=== PATIENT | male | born 1930 | race Hispanic/Latino ===

== ENCOUNTER 2016-12-14 19:30 | Outpatient (CLI) | payer MEDICARE, OTHER | END 2016-12-14 19:31 | disposition home or self-care (01) | LOC: SLEEPLAB 19:30 | PROVIDERS: ATTEND Internal Medicine | DX: G47.33 Obstructive sleep apnea (adult) (pediatric) (principal); I25.10 Atherosclerotic heart disease of native coronary artery without angina pectoris; I10 Essential (primary) hypertension; E66.9 Obesity, unspecified | CPT/HCPCS: 95811 ==

== ENCOUNTER 2017-07-30 14:05 | Outpatient (CLI) | payer MEDICARE, OTHER | END 2017-07-30 14:06 | disposition home or self-care (01) | LOC: CP 14:05 | PROVIDERS: ATTEND Internal Medicine Critical Care Medicine | DX: R06.09 Other forms of dyspnea (principal); G47.33 Obstructive sleep apnea (adult) (pediatric) ==

== ENCOUNTER 2017-08-04 12:18 | Observation (INO) | payer MEDICARE, OTHER ==
[2017-08-04 13:17] LABS: #Eosinphils 0.2 thou/uL (0.0-0.7); #Lymphocytes 1.6 thou/uL (1.20-3.40); #Monocytes 0.4 thou/uL (0.11-0.59); #Neutrophils 4.2 thou/uL (1.40-6.50); %Basophils 0.3 % (0.0-1.0); %Eosinophils 2.7 % (0.0-10.0); %Lymphocytes 24.5 % (21.0-51.0); %Monocytes 6.3 % (0.0-10.0); %Neutrophils 66.2 % (42.0-75.0); Hemoglobin 15.1 g/dL (14.0-18.0); Mean Corpuscular HGB CONC 33.6 g/dL (32.0-36.0); Mean Corpuscular Hemoglobin 32.9 pg (27.0-31.0); Mean Platelet Volume 6.7 fL (7.4-10.4); Platelet Count 230 thou/uL (130-400); RBC Distribution Width 13.3 % (11.5-14.5); Red Blood Cell (RBC) Count 4.58 mill/uL (4.70-6.10); White Blood Cell (WBC) Count 6.4 thou/uL (4.8-10.8)
[2017-08-04 13:37] LABS: ALT (SGPT) 21 U/L (8-55); AST (SGOT) 22 U/L (5-34); Albumin 4.1 g/dL (3.4-4.8); Alkaline Phosphatase 79 U/L (40-150); Anion Gap 11 mmol/L (10-20); BUN (Urea Nitrogen) 18 mg/dL (8.4-25.7); Bilirubin, Total 0.5 mg/dL (0.2-1.2); CK (CPK) 100 U/L (30-200); Calc. Creatinine Clearance 0 mL/min (70-130); Calcium 8.8 mg/dL (7.8-10.44); Carbon Dioxide 24 mmol/L (23-31); Chloride 108 mmol/L (98-107); Estimated GFR-MDRD 65; Globulin 3.3 g/dL (2.4-3.5); Glucose 143 mg/dL (83-110); Potassium 3.7 mmol/L (3.5-5.1); Protein, Total 7.4 g/dL (5.8-8.1); Sodium 139 mmol/L (136-145)
[2017-08-04 13:42] LABS: CKMB 1.4 ng/mL (0-6.6); Troponin I Less than 0.010 ng/mL (< 0.028)
--- NOTE | 2017-08-04 14:42 | RAD ---
CHEST 2 VIEWS: HISTORY: Chest pain. COMPARISON: 08/13/15. FINDINGS: Cardiac silhouette and pulmonary vasculature are unremarkable. Mediastinum midline with aortic calci fication. Lungs are hyperinflated. No lobar consolidation, pneumothorax, or pleural fluid. Degener ative changes each shoulder. IMPRESSION: Chronic-type findings are stable. No active cardiopulmonary abnormalities are demonstrated. POS: [facility]
[2017-08-04 15:08] LABS: Bilirubin Negative (Negative); Blood, Urine Negative (Negative); Clarity CLEAR (Clear); Glucose, Urine (Dipstick) Negative (Negative); Leukocyte Small (Negative); Nitrite Negative (Negative); Protein, Urine (Dipstick) 300 mg/dL (Neg-Trace); pH, Urine 5.5 (5.0-9.0)
[2017-08-04 15:14] LABS: Bacteria/HPF None Seen HPF (None Seen); Hyaline Casts/LPF 0-3 HYALINE CAST LPF (0-3 Hyaline); Pathc Cast-AUWi Flag 0.29 (0-2.49); RBC/HPF 0-3 HPF (0-3); Squamous Epithelial 0-3 HPF (0-3); WBC/HPF 0-3 HPF (0-3)
--- NOTE | 2017-08-04 15:36 | CT ---
CT HEAD NONCONTRAST: Date: 08/04/17 COMPARISON: 08/13/15. INDICATION: Dizziness. FINDINGS: There is parenchymal volume loss, similar. No acute intracranial hemorrhage, mass effect, midline delicia ft, or ventriculomegaly. 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 IMPRESSION: 1. No acute intracranial hemorrhage or mass effect. 2. Additional details are described above. POS: BRITT
[2017-08-04 18:16] VITALS: BMI 32.1
[2017-08-04 18:16] LABS: Troponin I Less than 0.010 ng/mL (< 0.028)
[2017-08-04] MEDS ORDERED: Ondansetron ODT 4 MG TAB SL PRN (18:39)
[2017-08-04] MEDS ORDERED: Ondansetron HCl/PF 4 MG/2 ML Vial IVP PRN (18:39)
[2017-08-04 19:20] LABS: Troponin I Less than 0.010 ng/mL (< 0.028)
[2017-08-04] MEDS ORDERED: hydrALAZINE 20 MG/ML VIAL SLOW IVP PRN (19:40)
[2017-08-04] MEDS ORDERED: Labetalol HCl 100 MG/20 ML VIAL SLOW IVP PRN (19:40)
[2017-08-04] MEDS ORDERED: Gabapentin 100 MG CAP PO SCH (21:00)
[2017-08-04] MEDS: Sodium Chloride 0.9% 1,000 ML IV SCH (21:28)
--- NOTE | 2017-08-04 21:59 | HP ---
DATE OF ADMISSION: 08/04/2017 CHIEF COMPLAINT: Dizziness. HISTORY OF PRESENT ILLNESS: This is an 86-year-old male with a prior history of question TIA, caroti d endarterectomy, who presented with a chief complaint of dizziness over the last 2 weeks. He states that these episodes will sometimes occur when he is at rest. He describes a feeling more consistent with lightheadedness where he feels like he is about to "pass out", but does not actually pass out. The patient denies any episodes of loss of consciousness. The patient denies feeling like the floor is moving beneath him. The patient denies feel like the room is spinning around him. The patient a lso notes that approximately 2-3 days ago he started having some intermittent difficulty breathing an d chest pain with these episodes. Those components of his episodes have resolved and he is left with mostly a sensation of lightheadedness. The patient notes that if he were asked to actually exert hi mself, he would be able to reproduce the symptoms, but they also appear when he is at rest. REVIEW OF SYSTEMS: Constitutional: No recent weight changes. No recent fevers or chills. HEENT: As per above, no headaches accompanied these episodes and no vision changes. Cardiovascular: Curren tly no overt chest pain or chest pressure or left-sided arm numbness or tingling. He describes previ ously some chest discomfort, but is unable to characterize in more detail of his chest discomfort moon t has occurred over the last 2 days. Respiratory: Trouble breathing that occurred earlier, but few days ago was described as feeling just "some shortness of breath," which is currently resolved. Othe rwise, denies any cough, denies any dyspnea with mild exertion with ADLs. Gastrointestinal: Denies any nausea, vomiting, abdominal pain, diarrhea or constipation. Reports a retained appetite. Genito urinary: Denies any dysuria, changes in urinary frequency, quality or quantity. Musculoskeletal: D enies any new myalgias or arthralgias. PAST MEDICAL HISTORY: As per HPI, 1. Hypertension. 2. Hyperlipidemia. 3. Coronary artery disease. 4. Prior history of MA. 5. 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 6. Gastroesophageal reflux disease. 7. Obesity. 8. Obstructive sleep apnea. 9. Status post carotid artery. Patient reports a history of carotid artery stenting and endarterect selam. 10. Status post cholecystectomy. 11. Status post left heart catheterization in the past. HOME MEDICATIONS: The patient's current list includes pantoprazole 40 mg p.o. at bedtime, lisinopril 40 mg p.o. at bedtime, gabapentin 100 mg p.o. at bedtime, felodipine 10 mg p.o. daily, aspirin 81 mg p.o. daily, levothyroxine 150 mg p.o. daily. ALLERGIES: IODINE. FAMILY HISTORY: The patient endorses a family history of hypertension, hyperlipidemia, and cardiovas cular disease. Denies any known family history of strokes. PHYSICAL EXAMINATION: GENERAL: The patient is awake, alert, appropriate, sitting in the hospital bed, in no acute distress and a reasonable historian, oriented x4. HEENT: Normocephalic, atraumatic. Moist mucous membrane. Pupils are equal and reactive. Ocular mo tions are intact. No posterior oropharyngeal erythema or exudate. CARDIOVASCULAR: S1, S2. No murmurs, rubs or gallops. Pulses 2+ bilateral upper extremity pitting p edal edema. No carotid bruits. RESPIRATORY: Reasonable air movement. No conversational dyspnea. No wheezes, rales or rhonchi. Cl ear to auscultation bilaterally. ABDOMEN: Positive bowel sounds, soft, nontender to palpation. NEUROLOGIC: Moving all 4 extremities and able to self-reposition in bed with minimal assistance. LABORATORY DATA AND IMAGING: WBC 6.4, hemoglobin 15.1, hematocrit 44.9, platelets 230. Sodium 139, potassium 3.9, chloride 108, bicarbonate 24, BUN 18, creatinine 1.07, glucose 143, calcium 8.8, total bilirubin 0.5, AST 22, ALT 21, alkaline phosphatase 79. Creatinine kinase 100, troponin less than 0 .01 x2. B-natriuretic natriuretic peptide 55.0, total protein 7.4, albumin 4.1. UA significant for 300 protein, leukocyte esterase small. IMAGING: On 08/04/2017, chest x-ray. Impression: "chronic findings are stable. No active cardiopu lmonary abnormalities are demonstrated." On 08/04/2017, brain CT. Impression: "No acute intracrani al hemorrhage or mass effect. Additional details as noted above. It includes a stable remote lacuna r infarction of posterior left cerebellar hemisphere." ASSESSMENT AND PLAN: 1. An 86-year-old male who is presenting with a chief complaint of lightheadedness, certainly could be a neurological etiology. Check orthostatic vital signs. CT is initially negative, but the patien t does have a prior lacunar infarct, but he is not overtly aware of. We will obtain an MRI if at all possible. Could also have a cardiac etiology for his episodes as he describes mostly lightheadednes s and less of dizziness type sensation. Check carotid ultrasounds and echocardiogram as well. Check orthostatic vital signs as described above. Appreciate Neurology consult. 2. History of coronary artery disease. Troponins have been essentially negative, although there torsten ears to be an exertional component. We will continue to monitor closely for hemodynamic stability an d maintain on telemetry. 3. History of hypertension, stable. 4. History of hyperlipidemia, stable. 5. History of hypothyroidism, status post treatment. Check a TSH, otherwise, stable. 6. Diet: Cardiac. 7. Activity: As tolerated. We will also have Physical Therapy see the patient. 8. Deep venous thrombosis prophylaxis, on enoxaparin. Thank you for asking me to participate in the care of the patient. The patient wishes to be FULL COD E at this point in time. This was discussed with the patient and his nephew at bedside.
[2017-08-05] MEDS: Sodium Chloride 0.9% 1,000 ML IV SCH (03:22)
[2017-08-05 05:56] LABS: Cardiac Risk 4.8 (Less than 4.5)
[2017-08-05] MEDS ORDERED: Levothyroxine 150 MCG TAB PO SCH (09:00)
[2017-08-05] MEDS ORDERED: Enoxaparin Sodium 40 MG/0.4 ML SYRINGE SC SCH (09:00)
--- NOTE | 2017-08-05 09:25 | ULT ---
CAROTID ULTRASOUND WITH ESCMAILLA SCALE AND DOPPLER DUPLEX COLOR FLOW IMAGING SPECTRAL ANALYSIS PERFORMED: CLINICAL INDICATION: Presyncope. History of carotid endarterectomy. FINDINGS: There is scattered moderate atherosclerotic formation. On the basis of peak systolic velocities/ICA to CCA ratio, there is evidence of moderate, 50-69% stenosis of the bilateral internal carotid arteri es. There is antegrade flow elicited from each visualized vertebral artery. PEAK SYSTOLIC VELOCITY (CM/S): Right CCA 102 Left CCA 71 Right ICA 186 Left ICA 181 IMPRESSION: 1. Moderate stenosis of the right internal carotid artery. 2. Moderate stenosis of the left internal carotid artery. POS: [facility]
[2017-08-05 09:51] VITALS: TEMP 97.7
--- NOTE | 2017-08-05 10:56 | MRI ---
BRAIN MRI WITHOUT CONTRAST: Date: 08/05/17 HISTORY: Dizziness. COMPARISON: None. CORRELATION: Noncontrast head CT dated 08/04/17. TECHNIQUE: Brain MRI is performed without intravenous Gadolinium administration. Multisequential, multiplanar im aging is performed. FINDINGS: No hemorrhage on the axial gradient echo sequence. No parenchymal mass, mass effect, or midline shift. Brain volume is age-appropriate. Cortical holland-wh ite matter differentiation is preserved. No evidence of hydrocephalus. White matter hyperintensities due to chronic small vessel ischemic changes are noted. Calvarium has a normal T1 marrow signal intensity. Midline brain parenchymal structures are unremarka ble. At the level of the foramen magnum, posterior to the dens, there is a T1 hypointense area with mixed signal hypointensity on the gradient echo sequence. The possibility of a meningioma is raised with ma ss effect upon the left cervicomedullary junction/upper cervical cord. Based on the sagittal images, this lesion measures 2.0 cm. There is slight interval growth when compared to MRI from 2009. There is some mass effect upon the cervicomedullary junction, as described above. Postcontrast imaging is rec ommended for better assessment. IMPRESSION: 1. Absent restricted diffusion. No acute infarct. 2. Age-appropriate atrophy. Chronic small vessel ischemic changes of white matter are noted. 3. Mass effect upon the cervicomedullary junction/upper cervical cord secondary to a lesion extra-ax ial in location as described above. Lesion is slightly increased when compared to the examination fro m 2008. Differential considerations include a calcified meningioma versus pannus secondary to degener ative change. Postcontrast images are recommended. POS: BRITT
[2017-08-05 11:22] LABS: Free T4 (Free Thyroxine) 1.1 ng/dL (0.70-1.48)
[2017-08-05 15:50] VITALS: BP 177/77
--- NOTE | 2017-08-05 19:26 | CON ---
DATE OF CONSULTATION: 08/05/2017 IMPRESSION: Probable peripheral vertigo versus cardiogenic dizziness. PLAN: The patient will be discharged home for outpatient followup with Cardiology and ENT. HISTORY OF PRESENT ILLNESS: Mr. Esteves is an 86-year-old gentleman who reports having variable amou nts of dizziness over the last week, it seems to come on with postural changes. He has not lost cons ciousness. He does not describe any nausea or vomiting associated with the dizziness. He has had so me ringing in his left ear that has intensified. He had MRI of the brain since admission, which show ed an extraaxial mass adjacent to the brainstem, but no evidence of any posterior fossa ischemic truong ges to account for his dizziness. His carotid Doppler showed 50%-69% stenosis bilaterally. He has b een followed by Dr. Rubin Serrano and had a prior carotid stent. He is without any lateralized weaknes s or numbness at this point in time. His EKG showed a sinus rhythm. PAST MEDICAL HISTORY: As noted above. FAMILY HISTORY: Noncontributory. ALLERGIES: IODINE. SOCIAL HISTORY: No tobacco or alcohol use. REVIEW OF SYSTEMS: No complaint of headache, slurred speech, difficulty swallowing, chest pain, or s hortness of breath. PHYSICAL EXAMINATION: GENERAL: He is a well-nourished elderly man, in no distress. VITAL SIGNS: Pulse 65, respirations 20. HEENT: Pupils are equal and reactive. Conjunctivae are clear. No nystagmus was present. Oropharyn x clear. NECK: Supple. EXTREMITIES: No cyanosis, clubbing or edema. NEUROLOGIC: He is alert and appropriate. Speech is fluent and clear. His exam is nonfocal. EKG: Normal sinus rhythm. MRI images were reviewed. SUMMARY: I do not see a neurologic etiology to his condition. I suspect it is more likely a benign positional vertigo and less likely cardiac arrhythmia related.
[2017-08-05] MEDS ORDERED: Lisinopril 20 MG TAB PO SCH (21:00)
--- NOTE | 2017-08-10 00:04 | EKG ---
Test Reason : Blood Pressure : / mmHG Vent. Rate : 090 BPM Atrial Rate : 090 BPM P-R Int : 202 ms QRS Dur : 096 ms QT Int : 360 ms P-R-T Axes : 098 037 049 degrees QTc Int : 440 ms Sinus rhythm with occasional Premature ventricular complexes Otherwise normal ECG Confirmed by FREDDY HOYOS ([id number]), news videotape editor BIBI VALLE ([id number]) on 08/10/2017 12:04:21 AM Referred By: Confirmed By:FREDDY HOYOS
== END 2017-08-05 18:21 | disposition home or self-care (01) ==
LOC: ERS 12:18 → 2SE 17:17
PROVIDERS: ADMIT Internal Medicine; ATTEND Internal Medicine
DX: R42 Dizziness and giddiness (principal); I10 Essential (primary) hypertension; E78.5 Hyperlipidemia, unspecified; I25.10 Atherosclerotic heart disease of native coronary artery without angina pectoris; I25.2 Old myocardial infarction; E03.9 Hypothyroidism, unspecified; E66.9 Obesity, unspecified; K21.9 Gastro-esophageal reflux disease without esophagitis; G47.33 Obstructive sleep apnea (adult) (pediatric); Z68.32 Body mass index [BMI] 32.0-32.9, adult; Z79.82 Long term (current) use of aspirin; Z79.899 Other long term (current) drug therapy; Z91.041 Radiographic dye allergy status
CPT/HCPCS: 70450; 70551; 71046; 80061; 82550; 82553; 83880; 84439; 84481; 84484 ×2; 93005; 93306; 93880; 96372; 99285; G0378; 36415; 80053; 81003; 81015; 84443; 85025; J1650